=== PATIENT | male | born 1960 | race Caucasian/White ===

== ENCOUNTER 2020-07-08 17:42 | Emergency (ER) | payer BC, SELFPAY ==
[2020-07-08 17:49] VITALS: BP 149/68; PULSE 72; RESP 20; TEMP 36.6; O2SAT 99
--- NOTE | 2020-07-08 18:02 | ED.SKABFB ---
HPI - Skin/Abscess/Foreign Bdy General Chief complaint: Skin/Abscess/Foreign Body Stated complaint: rash Source: patient and RN notes reviewed Limitations: no limitations History of Present Illness HPI narrative: The patient, relatively healthy on 1 med, presents with skin eruption. Patient states he is on lisinopril for hypertension. He reports a 2-day history of pink, itchy, raised rash that is migratory on his trunk and extremities. When symptoms began it did involve his face especially lips and mouth,and ear. Symptoms are mild, which improved with taking Benadryl, and involve mostly the trunk now[ not face]. No fever, wheeze, shortness of breath, CP, tongue edema; patient advised to discontinue his only medication, and a substitute will be provided Related Data Home Medications Medication Instructions Recorded Confirmed lisinopril 10 mg PO DAILY 07/08/20 07/08/20 Allergies Allergy/AdvReac Type Severity Reaction Status Date / Time Penicillins Allergy Nausea Verified 07/08/20 18:02 Review of Systems Review of Systems: Narrative: General/Constitutional: No weight loss,fever Eyes: N0: Redness,discharge Ears/Nose/Throat: No: Epistaxis,ear discharge Respiratory: Denies: Hemoptysis Gastrointestinal: No Vomiting, Bleeding-rectal Skin: No Lumps, REPORTS eruption Neurologic: No Focal Weakness,Sz Hematologic: Denies: Petechiae/Purpura Psychiatric: No: Suicida ideationl All Other Systems: Reviewed and Negative PMFSH Comments At time of signature, agree with nursing past medical, surgical, social and family history. There is no relevant family history pertinent to the presenting complaint Exam Narrative: Exam Narrative: General Appearance: Well-nourished Normocephalic, Conjunctiva clear Ear: External ear normal Nose: Normal nose, Nare clear Mouth/Throat: Normal appearing, Supple, -no edema Respiratory: Airway patent, No respiratory distress Musculoskeletal: Moves all extremities, Non tender Skin: Scattered, blanching urticarial lesions on trunk especially near axilla ; warm, Dry Neurological: A&O x3, Normal affect Course Vital Signs Vital signs: Vital Signs Temperature 97.8 F 07/08/20 17:49 Pulse Rate 72 07/08/20 17:49 Respiratory Rate 20 07/08/20 17:49 Blood Pressure 149/68 H 07/08/20 17:49 Pulse Oximetry 99 07/08/20 17:49 Temperature 97.8 F 07/08/20 17:49 Pulse Rate 72 07/08/20 17:49 Respiratory Rate 20 07/08/20 17:49 Blood Pressure 149/68 H 07/08/20 17:49 Pulse Oximetry 99 07/08/20 17:49 Discharge Plan Discharge Clinical Impression: Urticaria Patient Disposition: Home, Self-Care Condition: Stable Instructions: Urticaria (ED) Additional Instructions: Stop lisinopril for now, a substitute to be provided You may use Berna, or Claritin instead of shorter acting Benadryl See your doctor or return to hospital if worsens Prescriptions: New prednisone 20 mg tablet 60 mg PO DAILY Qty: 15 RF: 0 hydrochlorothiazide 25 mg tablet 25 mg PO DAILY Qty: 20 RF: 2 No Action lisinopril 10 mg Tablet 10 mg PO DAILY RF: 0 Follow-up/Referrals: Chiara Scott MD [Primary Care Provider] - Discharge Date/Time: 07/08/20 18:18
== END 2020-07-08 18:18 | disposition home or self-care (01) ==
PROVIDERS: Emergency Provider Emergency Medicine; PCP Family Medicine
DX: L50.0 Allergic urticaria (principal); I10 Essential (primary) hypertension
CPT/HCPCS: 99213; G0463

== ENCOUNTER → 2021-01-30 11:15 | Outpatient (CLI) | payer BC, SELFPAY ==
--- NOTE | ~2021-01-30 | XR_ITS ---
EXAMINATION: XR thoracic spine 3V DATE: 01/30/2021 12:09 INDICATION: Thoracic back pain. TECHNIQUE: 3 views of thoracic spine were obtained. COMPARISON: None. FINDINGS: There is 11 degrees levoscoliosis of thoracic spine. Vertebral body heights are normal. The re is mildly decreased disc height at multiple levels in thoracic spine. There are endplate osteophyt es at most levels. IMPRESSION: 1. Mild thoracic spondylosis. 2. Thoracic levoscoliosis. Reviewed, dictated and finalized at location A.
--- NOTE | ~2021-01-30 | XR_ITS ---
EXAMINATION: XR chest 2V DATE: 01/30/2021 12:09 INDICATION: Other chest pain. TECHNIQUE: Frontal and lateral views of the chest were obtained. COMPARISON: None. FINDINGS: The chest demonstrates clear lungs without pneumonia, pleural effusion, or pneumothorax. Th e heart size is normal. IMPRESSION: 1. No acute cardiopulmonary disease. Reviewed, dictated and finalized at location A.
== END ==
PROVIDERS: PCP Family Medicine; Visit Provider Family Medicine
DX: R07.89 Other chest pain (principal); M47.894 Other spondylosis, thoracic region
CPT/HCPCS: 71046; 72072

== ENCOUNTER 2021-02-06 07:54 | Outpatient (CLI) | payer BC, SELFPAY ==
--- NOTE | 2021-02-11 13:03 | WPDPFTINT ---
PFT Interpretation This PFT met all criteria for ATS standards and reproducibility FEV/FVC post bronchodilator 82% FEV1 73% FVC 69% TLC 63% RV 49% RV/TLC 25% DLCO 73% when adjusted for alveolar volume but not adjusted for hemoglobin Flow volume loops showed some flattening of the expiratory limb. This could be sometimes be seen in a variable intrathoracic airway obstruction. Impression: A restrictive ventilatory defect is present with mildly decreased diffusion capacity. This pattern may correlate with restrictive lung disease. Also the flow volume loop suggest a possible variable intrathoracic airway obstruction. Clinical And radiographic correlation is advised. PFT Procedure Performed PFT Procedure Performed Spirometry with Pre/Post Bronchodilator Plethysmography (Lung Vol) Diffusing Cap (DLCO) Flow Vol Loop
== END 2021-02-06 07:55 | disposition home or self-care (01) ==
PROVIDERS: PCP Family Medicine; Visit Provider Family Medicine
DX: R06.00 Dyspnea, unspecified (principal)
CPT/HCPCS: 94060; 94726; 94729

== ENCOUNTER → 2021-02-28 10:15 | Outpatient (CLI) | payer BC, SELFPAY ==
--- NOTE | ~2021-02-28 | CT_ITS ---
EXAMINATION: CT chest high resolution [facility] EXAM DATE: 02/28/2021 10:37 INDICATION: J84.9 - Interstitial pulmonary disease, unspecified. Shortness of breath, fatigue, inters titial lung disease. TECHNIQUE: Spiral CT of the chest without contrast. HRCT. Axial, coronal and sagittal images of the c hest were reviewed. Coronal maximum intensity pixel images of chest reviewed. The dose-length produ ct (DLP) for this examination was 587.79 mGy-cm. The exposure was tailored according to patient size (auto mA exposure control), and iterative reconstruction (ASIR) was used as additional dose reductio n technique. There is no prior study for comparison. FINDINGS: No intralobular septal thickening on the HRCT. Ascending aorta upper limits of normal at 3 .9 cm. There are no pleural or pericardial effusions. Tracheobronchial tree is patent. There is n o mediastinal, hilar or axillary lymphadenopathy. There is no pneumothorax. Heart normal in size. There is mild coronary arterial calcification, arterial sclerosis. There is hepatic steatosis. M oderate size mid and lower thoracic bridging endplate osteophytes. IMPRESSION: 1. Unremarkable chest. 2. Hepatic steatosis. Reviewed, dictated and finalized at location A.
== END ==
PROVIDERS: PCP Family Medicine; Visit Provider Family Medicine
DX: J84.9 Interstitial pulmonary disease, unspecified (principal); K76.0 Fatty (change of) liver, not elsewhere classified
CPT/HCPCS: 71250

== ENCOUNTER 2021-05-08 16:09 | Emergency (ER) | payer BC, SELFPAY ==
--- NOTE | ~2021-05-08 | US_ITS ---
US venous doppler [facility] DATE: 05/08/2021 17:27 INDICATION: Bilateral leg pain. TECHNIQUE: Real-time and color flow imaging and Doppler analysis of the veins of both legs COMPARISON: None FINDINGS: The greater saphenous veins are patent. There is spontaneous and phasic flow and normal aug mentation and color flow signal and normal compression of the deep veins of both lower extremities. IMPRESSION: No evidence of deep venous thrombosis of either lower extremity Reviewed, dictated and finalized at Location A. Reviewed, dictated and finalized at location A.
--- NOTE | ~2021-05-08 | XR_ITS ---
EXAMINATION: XR knee LT min 4V DATE: 05/08/2021 16:50 INDICATION: Left knee pain TECHNIQUE: Four views of the left knee were obtained. COMPARISON: None. FINDINGS: Alignment is normal. No fracture or osteochondral lesion. There is mild tricompartmental os teoarthritis characterized by tiny marginal osteophytes. No joint effusion/synovitis. Soft tissues a re unremarkable. IMPRESSION: 1. No acute osseous abnormality. Reviewed, dictated and finalized at location B.
[2021-05-08 16:30] VITALS: BP 141/82; PULSE 93; RESP 14; TEMP 36.8; O2SAT 99
--- NOTE | 2021-05-08 17:54 | ED.EXTPRO ---
HPI - Extremity Problem General Chief complaint: Extremity Problem,Nontraumatic Stated complaint: Bilateral Circulation Issues Time Seen by Provider: 05/08/21 16:57 Source: patient Mode of arrival: ambulatory Limitations: no limitations History of Present Illness HPI Narrative: 61-year-old with history of hypertension here with complaints of bilateral knee pain more so on the left. Patient states that pain is been radiating into his calf. Patient states that he had received cortisone injection in his right knee several years ago which helped him with his pain however for past 2 weeks he has been having ongoing pain. He thinks he may be having blood clot in his lower extremities. He presently denies any fever or chills. No history of trauma. 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 He also mentions that he is under a lot of stress with his being sick and is been taking care of her at home. Complaint: extremity pain Onset (ago): day(s) (4) Pain Consistency: constant Location: left Severity scale (1-10): 9 Quality: aching Radiation: distal Relieving factors: nothing Exacerbating factors: range of motion, weight bearing and walking Associated symptoms: denies other symptoms Related Data Allergies Allergy/AdvReac Type Severity Reaction Status Date / Time lisinopril Allergy Mild Itching Verified 05/08/21 17:39 Penicillins AdvReac Intermediate stomach Verified 05/08/21 17:39 upset Review of Systems Review of Systems: All systems reviewed & are unremarkable except as noted in HPI and below Constitutional: Constitutional: Reports no additional constitutional complaints Eyes: Eyes: Reports no additional eye complaints ENT: Reports system reviewed and no additional complaints, except as documented Cardiovascular: Cardiovascular: Reports no additional cardiovascular complaints Respiratory: Respiratory: Reports no additional respiratory complaints Gastrointestinal: Gastrointestinal: Reports no additional gastrointestinal complaints Musculoskeletal: Musculoskeletal: Reports as per HPI FOR[facility]LY [facility] Past Medical History Medical History Dyspnea Hypertension Interstitial lung disease Family History Family History Father Diabetes mellitus Family history of kidney disease Mother Hypertension Family history of elevated blood lipids Family history of cardiovascular disease Family history of malignant neoplasm of breast in first degree relative Sibling Hypertension Family history of kidney disease Social History Social History (Reviewed 03/29/21 @ 08:30 by Cherri Davidson [facility] Second hand tobacco smoke exposure: No Alcohol intake: never Substance use: unknown Exam Narrative: Exam Narrative: GENERAL: Well-appearing, well-nourished, and in no acute distress. HEAD: Normocephalic, atraumatic. EYES: PERRLA and EOMI. NECK: Supple. CHEST: Clear to auscultation. No respiratory distress. HEART: Regular rate and rhythm. No murmur heard. Normal peripheral pulses.. EXTREMITIES: Examination of the left knee shows mild soft tissue swelling around the medial aspect of the knee. Painful range of motion crepitus heard .no edema. Of both lower extremities nonspecific rash present. SKIN: Warm, dry, no rash. NEURO: No focal deficits. Alert and oriented x3. PSYCH: Normal mood and affect. Course Course Emergency Course: Discussed x-ray and venous Doppler results with the patient and his daughter was at bedside. His pain is primarily from his knees which is radiating into his legs. Advised him to take pain medication as prescribed, follow-up with orthopedic doctor. Vital Signs Vital signs: Vital Signs Temperature 36.8 C 05/08/21 16:30 Pulse Rate 93 05/08/21 16:30 Respiratory Rate 14 05/08/21 16:30 Blood Pressure 141/82 H 05/08/21 16:30 Pulse Oximetry 99 07/2
[2021-05-08] MEDS: HYDROcodone/acetaminophen (*CRX) 5-325 MG TABLET 1 TAB PO (17:56)
== END 2021-05-08 18:31 | disposition home or self-care (01) ==
PROVIDERS: Emergency Provider Family Medicine; PCP Family Medicine
DX: M25.562 Pain in left knee (principal); M25.561 Pain in right knee; I10 Essential (primary) hypertension; J84.9 Interstitial pulmonary disease, unspecified
CPT/HCPCS: 73564; 93970; 99284; A9270

== ENCOUNTER 2023-03-03 08:07 | Outpatient (CLI) | payer BC, SELFPAY ==
--- NOTE | ~2023-03-03 | US_ITS ---
US arterial ankle brachial ind INDICATION: Peripheral vascular disease TECHNIQUE: Segmental pressures and plethysmographic and Doppler waveforms of the brachial and lower e xtremity arteries were obtained. COMPARISON: None. FINDINGS: Right and left brachial artery pressures of 132 mm Hg and 143 mm Hg, respectively, are concordant (no rmal difference <= 30 mmHg). The right ankle-brachial index (CARLI) is 1.19 (normal >= 0.9-1.0). The right great toe-brachial index (TBI) is 1.01 (normal >= 0.60). The left CARLI is 1.12. The left TBI is 0.93. IMPRESSION: 1. Normal bilateral ankle and toe brachial indices. Reviewed, dictated and finalized at location B.
== END 2023-03-03 08:08 | disposition home or self-care (01) ==
LOC: ANHIMG 08:12
PROVIDERS: PCP Family Medicine; Visit Provider Physician Assistant Medical
DX: I73.9 Peripheral vascular disease, unspecified (principal)
CPT/HCPCS: 93922

== ENCOUNTER 2025-10-03 06:29 | Day surgery (SDC) | payer BC, SELFPAY ==
[2025-09-19 14:28] VITALS: BMI 28.9
[2025-10-03 06:44] VITALS: BP 146/85; PULSE 82; RESP 18; TEMP 36.1; O2SAT 100; BMI 28.7
[2025-10-03] MEDS: LACTATED RINGERS 1,000 ML 150 ML IV CONT (06:56)
--- NOTE | 2025-10-03 07:01 | WPDANESEPPF ---
Anes - Initial Pre Proc Eval Procedure: Operation Date: 10/03/25 08:00 Proposed Procedures p Screening Colonoscopy - Murtaza Yadav MD Date/Time: 10/03/25 07:01 Surgeon: Murtaza Yadav MD Pre Op Diagnosis: Encounter for screening for malignant neoplasm of Patient Data Age: 65 Gender: M Height: 1.85 m Weight: 98.8 kg Last Vital Signs Temp 97 F L 10/03/25 06:44 Pulse 82 10/03/25 06:44 Resp 18 10/03/25 06:44 BP 146/85 H 10/03/25 06:44 Pulse Ox 100 10/03/25 06:44 O2 Del Method Room Air 10/03/25 06:44 Allergies Allergy/AdvReac Type Severity Reaction Status Date / Time lisinopril Allergy Mild Itching Verified 10/03/25 06:43 Penicillins AdvReac Intermediate stomach Verified 10/03/25 06:43 upset Home Medications ?Medication ?Instructions ?Recorded ?Confirmed ?Type gbeqlazjwncv-mzs-yimic acid-vit 1 tablet PO DAILY 03/27/22 10/03/25 History K-lycop 400 mcg-20 mcg-370 mcg tablet (One-A-Day Men's 50 Plus (with vitamin K)) losartan 50 mg tablet 50 mg PO DAILY #30 tabs 05/25/25 10/03/25 Rx triamterene 37.5 1 tablet PO QAM #30 tabs 07/11/25 10/03/25 Rx mg-hydrochlorothiazide 25 mg tablet gabapentin 300 mg capsule 300 mg PO QHS #30 caps 08/08/25 10/03/25 Rx meloxicam 15 mg tablet 15 mg PO DAILY #30 tabs 08/08/25 10/03/25 Rx Patient hx anesthesia problems: none Family hx anesthesia problems: none Results Review: All pre-operative results and documents have been reviewed as part of the pre-operative evaluation. [facility]LY [facility] Past Medical History Medical History Prediabetes Interstitial lung disease Dyspnea Hypertension Family History Family History Father Diabetes mellitus Family history of kidney disease Mother Hypertension Family history of elevated blood lipids Family history of cardiovascular disease Family history of malignant neoplasm of breast in first degree relative Sibling Hypertension Family history of kidney disease Social History Social History Smoking status: Never smoker Alcohol intake: never Substance use: former Substance use type: marijuana Other substance usage details: QUIT SMOKING MARIJUANA IN MARCH 2022 Lack of Transportation: No Lack of Food: Never True Current Housing: I Have Housing Concerned About Future Housing: No Difficulty Paying Gas/Electric Bills: No Difficulty Paying for Meds: No Currently Unemployed: No Education: High School Diploma/GED Difficulty w/ Childcare or Family Care: No Living arrangements: with family Occupation/Education: occupation Gender identity (if verbalized by the patient): Male Sexual Orientation (if Verbalized by the Patient): Straight or Heterosexual Agree to blood products: Yes Anes - Eval Final PreProcedure Day of Procedure 10/03/25 07:01 Patient weight: normal Lungs: normal air movement Airway: Mallampati scale class II and special considerations (Upper partial, many missing teeth, none loose. ) Neurological: alert and oriented Last oral intake: >/= 8 hours ASA classification: II Emergent: no Anesthetic plan: proceed Anesthesia type and monitoring: general GIVS and standard monitoring Results Review: All pre-operative results and documents have been reviewed as part of the pre-operative evaluation. HTN, pre DM, pt active working, no cp or sob w 1-2 fos. Informed Consent: The patient's anesthetic plan and its attendant risks and benefits were discussed with the patient/family/POA. Questions were solicited and answers provided to the satisfaction of the patient/family/POA.
--- NOTE | 2025-10-03 07:26 | PM.HPGS ---
History of Present Illness History of Present Illness Consent: Risks, benefits, and alternatives have been discussed and questions answered. Patient agrees to proceed with procedure. Chief complaint: Encounter for screening for malignant neoplasm of Narrative: Devin Martines Sr. is a 65 year old male here for screening colonoscopy, last one 13 years ago Review of Systems Review of Systems: All systems reviewed & are unremarkable except as noted in HPI and below PMFSH Past Medical History Medical History (Updated 10/03/25 @ 07:26 by Murtaza Yadav MD) Colon cancer screening Prediabetes Interstitial lung disease Dyspnea Hypertension Family History Family History Father Diabetes mellitus Family history of kidney disease Mother Hypertension Family history of elevated blood lipids Family history of cardiovascular disease Family history of malignant neoplasm of breast in first degree relative Sibling Hypertension Family history of kidney disease Social History Social History Smoking status: Never smoker Alcohol intake: never Substance use: former Substance use type: marijuana Other substance usage details: QUIT SMOKING MARIJUANA IN MARCH 2022 Lack of Transportation: No Lack of Food: Never True Current Housing: I Have Housing Concerned About Future Housing: No Difficulty Paying Gas/Electric Bills: No Difficulty Paying for Meds: No Currently Unemployed: No Education: High School Diploma/GED Difficulty w/ Childcare or Family Care: No Living arrangements: with family Occupation/Education: occupation Gender identity (if verbalized by the patient): Male Sexual Orientation (if Verbalized by the Patient): Straight or Heterosexual Agree to blood products: Yes Meds Home Medications and Allergies Home Medications ?Medication ?Instructions ?Recorded ?Confirmed ?Type wantwtrkuoga-scv-evkqg acid-vit 1 tablet PO DAILY 03/27/22 10/03/25 History K-lycop 400 mcg-20 mcg-370 mcg tablet (One-A-Day Men's 50 Plus (with vitamin K)) losartan 50 mg tablet 50 mg PO DAILY #30 tabs 05/25/25 10/03/25 Rx triamterene 37.5 1 tablet PO QAM #30 tabs 07/11/25 10/03/25 Rx mg-hydrochlorothiazide 25 mg tablet gabapentin 300 mg capsule 300 mg PO QHS #30 caps 08/08/25 10/03/25 Rx meloxicam 15 mg tablet 15 mg PO DAILY #30 tabs 08/08/25 10/03/25 Rx Allergies Allergy/AdvReac Type Severity Reaction Status Date / Time lisinopril Allergy Mild Itching Verified 10/03/25 06:43 Penicillins AdvReac Intermediate stomach Verified 10/03/25 06:43 upset Vital Signs Vital Signs - 24 hr 10/03/25 06:44 Temperature 97 F L Pulse Rate 82 Respiratory Rate 18 Blood Pressure 146/85 H Pulse Oximetry 100 Oxygen Delivery Room Air Exam Const: General: comfortable and no acute distress HENMT: Face/Nose/Sinus: Normal nares present Eyes: General: appearance normal, both eyes and all related structures Neck: Neck: no JVD Resp: Auscultation: clear to auscultation bilaterally Cardio: Rate: regular rate Rhythm: regular rhythm GI: Inspection: non-distended GI Palp: Yes Soft to palpation Skin: General skin exam: normal color Extrem: General: normal to inspection Psych: Mental Status: mental status grossly normal Assessment and Plan Assessment and plan (1) Colon cancer screening: Code(s): Z12.11 - Encounter for screening for malignant neoplasm of colon Status: Acute Assessment and Plan: colonoscopy
[2025-10-03 07:43] VITALS: BP 134/75; PULSE 68; RESP 18; O2SAT 97
--- NOTE | 2025-10-03 07:44 | S_PTH ---
PATIENT: Devin Martines . LOC: [facility]#:[id number] AGE/SX: 65/M ROOM: RE10/03/[address]: Murtaza Yadav MD : 1960 BED: DIS: 10/03/2025 SPEC #: [id number] RECD: 10/03/25 10:15 STATUS: MICAELA COTTRELL #: [id number] SANJANA: 10/03/25 07:[address]: Murtaza Yadav DEPT: [facility] Surgical RECD BY: Ilana Ko ENTERED: 10/03/25 10:15 SP TYPE: Surgical OTHR DR: Kindra Ferreira PA-C Tissues: A - Colon Polypectomy Procedures: Hematoxylin and Eosin Stain Gross and Microscopic Level 4
[2025-10-03 07:53] VITALS: BP 131/74; PULSE 61; RESP 16; O2SAT 100
[2025-10-03 08:03] VITALS: BP 136/72; PULSE 59; RESP 15; O2SAT 99
== END 2025-10-03 08:19 | disposition home or self-care (01) ==
PROVIDERS: PCP Student in an Organized Health Care Education/Training Program; Referring Provider Family Medicine; Visit Provider Internal Medicine Gastroenterology
PROC: 0DJD8ZZ Inspection of Lower Intestinal Tract, Via Natural or Artificial Opening Endoscopic (ICD-10-PCS; CPT 45378; principal; 2025-10-03 08:00)
DX: Z12.11 Encounter for screening for malignant neoplasm of colon (principal); K63.5 Polyp of colon; K64.8 Other hemorrhoids; K57.30 Diverticulosis of large intestine without perforation or abscess without bleeding; R73.03 Prediabetes; I10 Essential (primary) hypertension; J84.9 Interstitial pulmonary disease, unspecified; Z80.3 Family history of malignant neoplasm of breast; Z82.49 Family history of ischemic heart disease and other diseases of the circulatory system
CPT/HCPCS: 45385; 88305; J2003; J2704; J7120